=== PATIENT | female | born 1990 | race Caucasian/White ===

== ENCOUNTER 2018-04-21 20:13 | Emergency (ER) | payer MEDICAID ==
[~2018-04-21] VITALS: Ht 157.5 cm; Wt 68.7 kg
--- NOTE | 2018-04-21 20:14 | NUR ---
PT BIB SELF C/O L LEG PAIN S/P BUG BITE. NOTED REDNESS AND SWELLING. PT DENIES N/V/D; SKIN IS INTACT, PINK/WARM/DRY; AAOX4, PERRL, WITH EVEN AND STEADY GAIT; LUNGS CLEAR BL, BREATHING UNLABORED; HR EVEN AND REGULAR, BL PERIPHERAL PULSES PRESENT; BS ACTIVE X4, NO TENDERNESS TO PALPATION. PT DENIES ANY FEVER, CP, SOB, OR COUGH AT THIS TIME; PT STATES 5/10 PAIN AT THIS TIME; VSS; PATIENT POSITIONED FOR COMFORT; HOB ELEVATED; BEDRAILS UP X2; BED DOWN.
[2018-04-21 20:20] VITALS: BP 128/80
--- NOTE | 2018-04-21 20:29 | NUR ---
PT TAKEN TO BED 2
--- NOTE | 2018-04-21 22:20 | NUR ---
REPORT RECEIVED FROM JALIL BATISTA
--- NOTE | 2018-04-21 22:20 | NUR ---
Pt report given to MAHAMED. Transfer of care at this time.
--- NOTE | 2018-04-21 23:00 | NUR ---
PT ON STRETCHER IN NAD, NO IDENTIFIED REQUESTS AT THIS TIME.
--- NOTE | 2018-04-22 | NUR ---
AWAITING D/C INSTRUCTIONS FROM EDMD.
[2018-04-22 00:48] VITALS: BP 124/87
--- NOTE | 2018-04-22 00:48 | NUR ---
Patient discharged with v/s stable. Written and verbal after care instructions given and explained. Patient alert, oriented and verbalized understanding of instructions. Ambulatory with steady gait. All questions addressed prior to discharge. ID band removed. Patient advised to follow up with PMD. Rx of BACTRIM AND BENADRYL given. Patient educated on indication of medication including possible reaction and side effects. Opportunity to ask questions provided and answered.
== END 2018-04-22 00:48 | disposition home or self-care (01) ==
LOC: MED 20:13
DX: S70.362A Insect bite (nonvenomous), left thigh, initial encounter (principal); L03.116 Cellulitis of left lower limb; W57.XXXA Bitten or stung by nonvenomous insect and other nonvenomous arthropods, initial encounter; Y93.89 Activity, other specified; Y99.8 Other external cause status; Y92.89 Other specified places as the place of occurrence of the external cause
CPT/HCPCS: 99283

== ENCOUNTER 2018-07-05 12:36 | Emergency (ER) | payer MEDICAID ==
[~2018-07-05] VITALS: Ht 160 cm; Wt 72.6 kg
[2018-07-05 12:45] VITALS: BP 130/82
[2018-07-05] MEDS ORDERED: NACL 0.9% 1,000 ML IV ONE (13:10)
[2018-07-05] MEDS ORDERED: METOCLOPRAMIDE 10 MG/2 ML INJ VIAL IVP ONE (13:45)
[2018-07-05] MEDS ORDERED: diphenhydrAMINE 50 MG/ML VIAL IVP ONE (13:45)
[2018-07-05 15:28] VITALS: BP 99/62
== END 2018-07-05 15:25 | disposition home or self-care (01) ==
LOC: MED 12:36
DX: R51 Headache (principal); M54.2 Cervicalgia; F17.200 Nicotine dependence, unspecified, uncomplicated
CPT/HCPCS: 70450; 81002; 81025; 96374; 96375; 99284; J1200; J2765; J7030